=== PATIENT | male | born 1975 | race Caucasian/White ===

== ENCOUNTER 2017-10-10 01:47 | Emergency (ER) | payer SELFPAY ==
[2017-10-10 02:02] VITALS: BP 150/89; PULSE 87; TEMP 98.3; BMI 32.9
[2017-10-10] MEDS ORDERED: RANITIDINE HCL 150 MG TABLET (FP) PO ONE (02:21)
--- NOTE | 2017-10-10 02:25 | PDOC ---
History of Present Illness - General Chief Complaint: Rash Stated Complaint: RASH Time Seen by Provider: 10/10/17 02:08 History Source: Patient Exam Limitations: No Limitations - History of Present Illness Initial Comments: 10/10/17 02:19 HISTORY OF PRESENT ILLNESS: 41-year-old male with sudden onset of urticaria approximately 6 hours prior to arrival. Patient states he was eating [place] food tonight when she has eaten before prior to eruption of wheals. Patient denies any change in soaps, shampoos, cologne, lotion, fabric softener, laundry detergent, food or medications. Patient denies any shortness of breath. Breathing. Patient denies itching in his throat. No recent travel or sick contacts. PAST MEDICAL HISTORY: Denies past medical history SURGICAL HISTORY: Denies ALLERGIES: No known drug allergies REVIEW OF SYSTEMS General/Constitutional: Denies fever or chills. Denies weakness, weight change. HEENT: Denies change in vision. Denies ear pain or discharge. Denies sore throat. Cardiovascular: Denies chest pain or shortness of breath. Respiratory: Denies cough, wheezing, or hemoptysis. Gastrointestinal: Denies nausea, vomiting, diarrhea or constipation. Denies rectal bleeding. Genitourinary: Denies dysuria, frequency, or change in urination. Musculoskeletal: Denies joint or muscle swelling or pain. Denies neck or back pain. Skin and breasts: Pruritic rash to chest, abdomen, back, bilateral upper extremities, bilateral thighs Neurologic: Denies headache, vertigo, loss of consciousness, or loss of sensation. Psychiatric: Denies depression or anxiety. Endocrine: Denies increased thirst. Denies abnormal weight change. Hematologic/Lymphatic: Denies anemia, easy bleeding, or history of blood clots. Allergic/Immunologic: Denies hives or skin allergy. Denies latex allergy. PHYSICAL EXAM General Appearance: Well-appearing, appropriately dressed. No apparent distress , no intoxication. HEENT: EOMI, PERRLA, normal ENT inspection, normal voice, TMs normal, pharynx normal. No conjunctival pallor. No photophobia, scleral icterus. Neck: Supple. Trachea midline. No tenderness, rigidity, carotid bruit, stridor , lymphadenopathy, or thyromegaly. Respiratory/Chest: Lungs CTAB. No shortness of breath, chest tenderness, respiratory distress, accessory muscle use. No crackles, rales, rhonchi, stridor , wheezing, dullness Cardiovascular: RRR. S1, S2. No JVD, murmur, bradycardia, tachycardia. Vascular Pulses: Dorsalis-Pedis (R): 2+, Dorsalis-Pedis (L): 2+ Gastrointestinal/Abdominal: Normal bowel sounds. Abdomen soft, non-distended. No tenderness or rebound tenderness. No organomegaly, pulsatile mass, guarding, hernia, hepatomegaly, splenomegaly. Lymphatic: No adenopathy, tenderness. Musculoskeletal/Extremities: Normal inspection. FROM of all extremities, normal capillary refill. Pelvis Stable. No CVA tenderness. No tenderness to extremities, pedal edema, swelling, erythema or deformity. Integumentary: Pruritic wheals present to chest, abdomen, back, bilateral upper extremity, bilateral thighs Neurologic: structural steel ironworker II-XII intact. Fully oriented, alert. Appropriate mood/affect. Motor strength 5/5. No appreciable EOM palsy, facial droop or sensory deficit. Past History - Past Medical History COPD: No - Immunization History Immunization Up to Date: Yes - Suicide/Smoking/Psychosocial Hx Smoking History: Never smoked Hx Alcohol Use: No Drug/Substance Use Hx: No *Physical Exam - Vital Signs Last Vital Signs Temp Pulse Resp BP Pulse Ox 98.3 F 87 20 150/89 99 10/10/17 01:58 10/10/17 01:58 10/10/17 01:58 10/10/17 01:58 10/10/17 01:58 Medical Decision Making - Medical Decision Making 10/10/17 02:19 A/P: 41-year-old male with abrupt onset of hives 6 hours ago Urticaria present to upper extremities, chest, back, abdomen, thighs Speaking full sentences No change in voice per spouse No stridor noted Lungs clear to auscultation bilaterally Patient with urticaria Zantac, reassess 10/10/17 03:44 Itching has improved. I will d/c home with ENT f/u. Pt verbalized understanding of d/c instructions. *DC/Admit/Observation/Transfer Diagnosis at time of Disposition: Urticaria - Discharge Dispostion Disposition: HOME Condition at time of disposition: Stable Decision to Admit order: No - Referrals Referrals: Henri Carey MD [Staff Physician] - - Patient Instructions Additional Instructions: Take Zyrtec, Zoya or Claritinas directed by cooker cleaner's instructions for itching. Apply hydrocortisone ointment to affected areas as needed for itching. Write down all foods you eat until you follow up with verification specialist. You have been given a referral to an edge [facility]onder, Dr. Carey. Please call for an evaluation in 1 week. Return to ER for shortness of breath, difficulty breathing, throat itching, change in voice or any other concerns. - Post Discharge Activity
[2017-10-10] MEDS ORDERED: RANITIDINE HCL 150 MG TABLET (FP) ONE (03:09)
== END 2017-10-10 04:20 | disposition home or self-care (01) ==
LOC: JER 01:47
DX: L50.9 Urticaria, unspecified (principal)
CPT/HCPCS: 99281-25